=== PATIENT | female | born 1960 | race Hispanic/Latino ===

== ENCOUNTER 2019-03-14 20:58 | Emergency (ER) | payer MEDICARE ==
[2019-03-14] MEDS ORDERED: Ketorolac Tromethamine 30 MG/ML VIAL ONE (21:19)
--- NOTE | 2019-03-14 21:38 | CT ---
Exam: CT cervical spine without contrast HISTORY: Trauma. Pain. COMPARISON: None FINDINGS: No craniocervical dissociation. Appropriate alignment of the lateral masses of C1 and C2. Intact odon toid process Appropriate alignment of the facets. Soft tissue neck structures: No mass, lymphadenopathy or hematoma. No prevertebral soft tissue swelli ng. Upper mediastinum and lung apices: Unremarkable Central spinal canal: Neural foramina and central spinal canal are patent. Evaluation is limited by t echnique Vertebral bodies: Cervical spine vertebral body height is maintained. No fracture. Straightening of n ormal cervical lordosis may be due to patient position, muscle spasms. IMPRESSION: 1. No fracture 2. Straightening of normal cervical lordosis, as above. MRI if there is concern for ligamentous.
== END 2019-03-14 21:57 | disposition home or self-care (01) ==
LOC: ERS 20:58
DX: S16.1XXA Strain of muscle, fascia and tendon at neck level, initial encounter (principal); I10 Essential (primary) hypertension; F31.9 Bipolar disorder, unspecified; F43.10 Post-traumatic stress disorder, unspecified; V43.52XA Car driver injured in collision with other type car in traffic accident, initial encounter
CPT/HCPCS: 72125; 96372; J1885

== ENCOUNTER 2022-04-12 15:44 | Emergency (ER) | payer OTHER, SELFPAY | END 2022-04-12 16:09 | disposition home or self-care (01) | LOC: ERS 15:44 | DX: S92.352A Displaced fracture of fifth metatarsal bone, left foot, initial encounter for closed fracture (principal); M25.572 Pain in left ankle and joints of left foot; I10 Essential (primary) hypertension; W01.0XXA Fall on same level from slipping, tripping and stumbling without subsequent striking against object, initial encounter; Y92.009 Unspecified place in unspecified non-institutional (private) residence as the place of occurrence of the external cause; Z79.899 Other long term (current) drug therapy ==